=== PATIENT | male | born 1950 | race Caucasian/White ===

== ENCOUNTER 2016-07-08 12:10 | Emergency (ER) | payer OTHER ==
[~2016-07-08] VITALS: Ht 180.3 cm; Wt 63.5 kg
[2016-07-08 14:01] LABS: Basophils # (auto) 0 uL; Basophils % (auto) 0.5 % (0.0-2.0); Eosinophils # (auto) 0.1 uL; Eosinophils % (auto) 0.7 % (0.0-7.0); Hematocrit 49.4 % (41.0-53.0); Hemoglobin 15.7 g/dL (13.5-17.5); Lymphocytes # (auto) 1.9 uL; Lymphocytes % (auto) 20.4 % (10.0-50.0); Mean Corpuscular Hemoglobin 30.2 pg (28.0-32.0); Mean Corpuscular Hgb Conc. 31.8 g/dL (32.0-36.0); Mean Platelet Volume 8.2 fL (7.4-10.4); Monocytes # (auto) 0.6 uL; Monocytes % (auto) 6.1 % (0.0-12.0); Neutrophils # (auto) 6.9 uL; Neutrophils % (auto) 72.3 % (37.0-80.0); Platelet Count (auto) 249 10^3/uL (140-450); Red Cell Distribution Width 13.8 % (11.6-16.0); White Blood Cell 9.5 10^3/uL (4.4-10.8)
[2016-07-08 14:30] LABS: Albumin 4.3 g/dL (3.4-5.0); BUN/Creatinine Ratio 20.6; Bilirubin, Total 0.8 mg/dL (0.2-1.0); Calcium 9.3 mg/dL (8.5-10.1); Total Protein 7.5 g/dL (6.4-8.2)
[2016-07-08 18:44] LABS: B-Type Natriuretic Peptide 19.09 pg/mL (0-100)
[2016-07-08 19:23] LABS: Temperature: 22.1 C (20.0-25.0)
[2016-07-08 19:44] VITALS: BP 126/83
== END 2016-07-08 20:56 | disposition left against medical advice (07) ==
LOC: ER 12:11
DX: J44.9 Chronic obstructive pulmonary disease, unspecified (principal); R55 Syncope and collapse; F17.210 Nicotine dependence, cigarettes, uncomplicated; F12.10 Cannabis abuse, uncomplicated; R06.02 Shortness of breath
CPT/HCPCS: 36415; 70450; 71020; 80053; 83690; 83880; 84484; 85025; 85379; 93005

== ENCOUNTER 2020-07-09 14:04 | Emergency (ER) | payer OTHER ==
[~2020-07-09] VITALS: Ht 185.4 cm; Wt 63.5 kg
[2020-07-09 15:21] VITALS: BP 126/76
== END 2020-07-09 16:03 | disposition home or self-care (01) ==
LOC: ER 14:04
DX: M79.672 Pain in left foot (principal); F17.210 Nicotine dependence, cigarettes, uncomplicated; J44.9 Chronic obstructive pulmonary disease, unspecified
CPT/HCPCS: 73630

== ENCOUNTER 2022-06-10 10:48 | Emergency (ER) | payer MEDICARE, OTHER ==
[~2022-06-10] VITALS: Ht 185.4 cm; Wt 70.3 kg
[2022-06-10 11:57] LABS: Basophils # (auto) 0.1 10 ^3/uL (0-0.2); Basophils % (auto) 0.7 % (0.0-2.0); Eosinophils # (auto) 0.1 10 ^3/uL (0-0.8); Eosinophils % (auto) 1.5 % (0.0-7.0); Hematocrit 50.6 % (41.0-53.0); Hemoglobin 16.9 g/dL (13.5-17.5); Lymphocytes # (auto) 2.5 10 ^3/uL (0.4-5.4); Lymphocytes % (auto) 31.3 % (10.0-50.0); Mean Corpuscular Hemoglobin 31.5 pg (28.0-32.0); Mean Corpuscular Hgb Conc. 33.5 g/dL (32.0-36.0); Mean Corpuscular Volume 94.2 fL (80.0-100.0); Monocytes # (auto) 0.8 10 ^3/uL (0-1.3); Monocytes % (auto) 9.8 % (0.0-12.0); Neutrophils # (auto) 4.5 10 ^3/uL (1.6-8.6); Neutrophils % (auto) 56.7 % (37.0-80.0); Nucleated Red Blood Cells % 0.1 %; Red Blood Cells 5.37 10^6/uL (4.5-5.90); Red Cell Distribution Width 13.3 % (11.8-14.3); White Blood Cell 7.9 10^3/uL (4.4-10.8)
[2022-06-10 12:15] LABS: Albumin 4.6 g/dL (3.4-5.0); Calcium 9.4 mg/dL (8.5-10.1); Potassium 3.8 mmol/L (3.5-5.1)
[2022-06-10 12:18] LABS: Bilirubin, Total 0.7 mg/dL (0.2-1.0); Total Protein 7.2 g/dL (6.4-8.2)
[2022-06-10 12:41] LABS: Urine Bacteria NONE SEEN /hpf (None Seen); Urine Blood Negative /uL (Negative); Urine Specific Gravity 1.014 (1.001-1.035); Urine WBC <1 /hpf (0 - 3)
[2022-06-10 15:24] VITALS: BP 124/93
== END 2022-06-10 15:25 | disposition home or self-care (01) ==
LOC: ER 10:48
DX: R10.9 Unspecified abdominal pain (principal); R07.89 Other chest pain; J44.9 Chronic obstructive pulmonary disease, unspecified
CPT/HCPCS: 36415; 71046; 74176; 80053; 81001; 85025

== ENCOUNTER 2022-06-24 11:55 | Emergency (ER) | payer MEDICARE, OTHER ==
[~2022-06-24] VITALS: Ht 185.4 cm; Wt 70.3 kg
[2022-06-24] MEDS ORDERED: LIDOCAINE VISCOUS 2% 15ML UD PO ONE (12:45)
[2022-06-24] MEDS ORDERED: MAALOX PLUS or MAALOX 30 ML PO ONE (12:45)
[2022-06-24] MEDS ORDERED: SODIUM CHLORIDE 0.9% 1,000 ML IV ONE (12:45)
[2022-06-24] MEDS ORDERED: DONNATAL 5ml ORAL Elix (BELLADONNA ALK-PHENOBARB) PO ONE (12:45)
[2022-06-24] MEDS ORDERED: ASPirin 325 MG TAB PO ONE (12:45)
[2022-06-24 13:14] LABS: BUN/Creatinine Ratio 20.2; Basophils # (auto) 0 10 ^3/uL (0-0.2); Basophils % (auto) 0.6 % (0.0-2.0); Calcium 9.6 mg/dL (8.5-10.1); Eosinophils # (auto) 0.1 10 ^3/uL (0-0.8); Eosinophils % (auto) 1.6 % (0.0-7.0); Hematocrit 47.2 % (41.0-53.0); Lymphocytes # (auto) 1.9 10 ^3/uL (0.4-5.4); Lymphocytes % (auto) 29.6 % (10.0-50.0); Mean Corpuscular Hemoglobin 31.9 pg (28.0-32.0); Mean Corpuscular Hgb Conc. 33.8 g/dL (32.0-36.0); Mean Corpuscular Volume 94.3 fL (80.0-100.0); Monocytes # (auto) 0.6 10 ^3/uL (0-1.3); Monocytes % (auto) 8.6 % (0.0-12.0); Neutrophils # (auto) 3.9 10 ^3/uL (1.6-8.6); Neutrophils % (auto) 59.6 % (37.0-80.0); Nucleated Red Blood Cells % 0.2 %; Potassium 4.4 mmol/L (3.5-5.1); Red Cell Distribution Width 13.4 % (11.8-14.3); White Blood Cell 6.5 10^3/uL (4.4-10.8)
[2022-06-24 13:15] LABS: Bilirubin, Total 0.4 mg/dL (0.2-1.0); Total Protein 6.7 g/dL (6.4-8.2)
[2022-06-24 14:34] LABS: Urine WBC None Seen /hpf (0 - 3)
[2022-06-24 14:47] LABS: Urine Bacteria FEW /hpf (None Seen); Urine Blood Negative /uL (Negative); Urine Specific Gravity 1.011 (1.001-1.035)
[2022-06-24] MEDS ORDERED: PANT40TA2 PO (16:05)
[2022-06-24 17:08] VITALS: BP 117/72
== END 2022-06-24 17:11 | disposition home or self-care (01) ==
LOC: ER 11:55
DX: R07.89 Other chest pain (principal); K29.70 Gastritis, unspecified, without bleeding
CPT/HCPCS: 36415; 71045; 80053; 81001; 84484; 85025; 93005; 96360; 99285; J7030

== ENCOUNTER 2023-03-03 11:02 | Inpatient (IN) | payer MEDICARE, OTHER ==
[~2023-03-03] VITALS: Ht 185.4 cm; Wt 67.0 kg
[~2023-03-03 11:02] MED LIST: PANT40TA2 PO
[2023-03-03 11:43] LABS: Basophils # (auto) 0.1 10 ^3/uL (0-0.2); Basophils % (auto) 0.9 % (0.0-2.0); Eosinophils # (auto) 0.1 10 ^3/uL (0-0.8); Eosinophils % (auto) 1.4 % (0.0-7.0); Hematocrit 47.3 % (41.0-53.0); Hemoglobin 16.1 g/dL (13.5-17.5); Lymphocytes # (auto) 2.3 10 ^3/uL (0.4-5.4); Lymphocytes % (auto) 33.8 % (10.0-50.0); Mean Corpuscular Hemoglobin 31.6 pg (28.0-32.0); Mean Corpuscular Volume 92.7 fL (80.0-100.0); Monocytes # (auto) 0.8 10 ^3/uL (0-1.3); Neutrophils # (auto) 3.6 10 ^3/uL (1.6-8.6); Neutrophils % (auto) 52.9 % (37.0-80.0); Nucleated Red Blood Cells % 0.2 %; Red Cell Distribution Width 13.5 % (11.8-14.3); White Blood Cell 6.9 10^3/uL (4.4-10.8)
[2023-03-03 12:02] LABS: Alanine Aminotransferase 23 U/L (7-40); Albumin 4.6 g/dL (3.2-4.8); Alkaline Phosphatase 76 U/L (46-116); Anion Gap 3 (5-15); Aspartate Aminotransferase 15 U/L (13-40); BUN/Creatinine Ratio 10.8 (10.0-20.0); Bilirubin, Total 1.1 mg/dL (0.2-1.0); Blood Urea Nitrogen 12 mg/dL (9-23); Calcium 9.7 mg/dL (8.7-10.4); Carbon Dioxide 31 mmol/L (20-30); Chloride 105 mmol/L (98-107); Glucose 90 mg/dL (74-106); INR 1.03 (0.9-1.15); Partial Thromboplastin Time 27.9 SEC (24.5-34.5); Potassium 4.2 mmol/L (3.5-5.1); Prothrombin Time 10.8 sec (9.3-11.8); Sodium 139 mmol/L (136-145)
[2023-03-03 13:09] LABS: Urine Bacteria NONE SEEN /hpf (None Seen); Urine Blood Negative /uL (Negative); Urine Clarity Clear (Clear); Urine Color Yellow (Yellow); Urine Protein, UAD Negative (Negative); Urine Urobilinogen Normal (Negative); Urine WBC 1 /hpf (0 - 3); Urine pH 5.5 (5.0-8.0)
[2023-03-03 16:17] VITALS: PULSE 51; RESP 13; O2SAT 99
[2023-03-03] MEDS ORDERED: MORPHINE SULFATE INJ 2 MG/ml SYRG IV PRN ×2 (16:30)
[2023-03-03] MEDS ORDERED: ONDANSETRON HCL 4 MG/2 ML VIAL IV PRN (16:30)
[2023-03-03] MEDS ORDERED: NITROGLYCERIN 0.4 MG SL TAB SL PRN (16:30)
[2023-03-03] MEDS ORDERED: HYDROcodone-ACET 5/325MG TAB PO PRN (16:30)
[2023-03-03 19:30] VITALS: PULSE 55; RESP 15; O2SAT 97
[2023-03-04] VITALS (8 sets, daily range): BP systolic 106–131; BP diastolic 62–77; PULSE 48–63; RESP 17–20; TEMP 97.6–98.2; O2SAT 96–98
[2023-03-04] MEDS ORDERED: ADENOSINE 56 MG in GIVE UN-DILUTED 0 ML IV STA (07:40)
[2023-03-04] MEDS ORDERED: ENOXAPARIN SOD 40 MG/0.4 ML SYRINGE SC SCH (10:00)
[2023-03-04] MEDS ORDERED: ASPirin 81 mg TAB PO SCH (10:00)
== END 2023-03-04 16:55 | disposition home or self-care (01) | DRG 206 ==
LOC: ER 11:02 → TELE 16:27 → TELE-CENTR 21:55
PROVIDERS: ADMIT Internal Medicine; ATTEND Internal Medicine
DX: M94.0 Chondrocostal junction syndrome [Tietze] (principal); J44.9 Chronic obstructive pulmonary disease, unspecified; E78.5 Hyperlipidemia, unspecified
CPT/HCPCS: 36415; 71045; 78452; 80053; 81001; 84484; 85025; 85610; 85730; 93005; 93017; G0378; J0153

== ENCOUNTER 2024-07-14 11:07 | Emergency (ER) | payer OTHER, MEDICAID ==
[~2024-07-14] VITALS: Ht 185.4 cm; Wt 66.2 kg
--- NOTE | 2024-07-14 11:52 | ED.PDOC ---
History of Present Illness HPI Comments 74-year-old male with PMHx COPD presents with a chief complaint of nose bleeding x 6 days intermittently. Patient reports that this has happened to him before in the past "when I was giving my old lady head, she sat on my nose and it started bleeding and it hasn't been the same since". Patient denies being on blood thinners or taking any medications daily. Patient denies any injuries to his nose recently. Patient is not hypertensive in triage at 120/68. No other symptoms or modifying factors present at this time. Time Seen by MD: 11:44 Primary Care Provider: [facility] Reviewed Notes: Medications, Allergies Allergies: Coded Allergies: NO KNOWN ALLERGIES (Unverified , 07/08/16) Home Meds Unable to Obtain Active Prescriptions or Reported Meds Information Source: Patient Mode of Arrival: Ambulatory Severity: Moderate Timing: Days Duration: Intermittent Prehospital treatment: None Past Medical History PAST MEDICAL HISTORY: COPD Surgical History: Denies all surgeries Family History Family History: No family hx of DM, No family hx of Heart william Social History Smoker: Non-Smoker Alcohol: Rarely Drugs: Marijuana Lives In: Home Constitutional: denies: chills, diaphoresis, fatigue, fever, malaise, sweats, weakness, others EENTM: reports: nose bleeding; denies: blurred vision, double vision, ear bleeding, ear discharge, ear drainage, ear pain, ear ringing, eye pain, eye redness, hearing loss, mouth pain, mouth swelling, nasal discharge, nose congestion, nose pain, photophobia, tearing, throat pain, throat swelling, voice changes, others Respiratory: denies: cough, hemoptysis, orthopnea, SOB at rest, shortness of breath, SOB with excertion, stridor, wheezing, others Cardiovascular: denies: chest pain, dizzy spells, diaphoresis, Dyspnea on exertion, edema, irregular heart beat, left arm pain, lightheadedness, palpitations, PND, syncope, others Gastrointestinal: denies: abdomen distended, abdominal pain, blood streaked bowels, constipated, diarrhea, dysphagia, difficulty swallowing, hematemesis, melena, nausea, poor appetite, poor fluid intake, rectal bleeding, rectal pain, vomiting, others Genitourinary: denies: burning, dysuria, flank pain, frequency, hematuria, incontinence, penile discharge, penile sore, pain, testicle pain, testicle swelling, urgency, others Neurological: denies: dizziness, fainting, headache, left sided numbness, left sided weakness, numbness, paresthesia, pre-existing deficit, right sided numbness, right sided weakness, seizure, speech problems, tingling, tremors, weakness, others Musculoskeletal: denies: back pain, gout, joint pain, joint swelling, muscle pain, muscle stiffness, neck pain, others Integumetry: denies: bruises, change in color, change in hair/nails, dryness, laceration, lesions, lumps, rash, wounds, others Allergic/Immunocompromised: denies: Difficulty Healing, Frequent Infections, Hives, Itching, others Hematologic/Lymphatic: denies: anemia, blood clots, easy bleeding, easy bruising, swollen glands, others Endocrine: denies: excessive hunger, excessive sweating, excessive thirst, excessive urination, flushing, intolerance to cold, intolerance to heat, unexplained weight gain, unexplained weight loss, others Psychiatric: denies: anxiety, bipolar disorder, depression, hopeless, panic disorder, schizophrenia, sleepless, suicidal, others All Other Systems: Reviewed and Negative Physical Exam General Appearance: No Apparent Distress HEENT: Normal ENT Inspection, Pharynx Normal, TMs Normal Neck: Full Range of Motion, Non-Tender, Normal, Normal Inspection Respiratory: Chest Non-Tender, Lungs Clear, No Accessory Muscle Use, No Respiratory Distress, Normal Breath Sounds Cardiovascular: No Edema, No JVD, No Murmur, No Gallop, Normal Peripheral Pulses, Regular Rate/Rhythm Breast Exam: Deferred Gastrointestinal: No Organomegaly, Non Tender, No Pulsatile Mass, Normal Bowel Sounds, Soft Genitalia: Deferred Pelvic: Deferred Rectal: Deferred Extremities: No calf tenderness, Normal capillary refill, Normal inspection, Normal range of motion, Non-tender, No pedal edema Musculoskeletal : Apperance: Normal Neurologic: Alert, 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 Was a procedure done?: No Differential Dx Considerations may include: Epistaxis, generalized weakness X-Ray, Labs, Meds, VS Vital Signs Date Time Temp Pulse Resp B/P (MAP) Pulse Ox O2 Delivery O2 Flow Rate FiO2 07/14/24 12:09 54 16 97 Room Air 07/14/24 12:09 97.1 54 16 120/68 (85) 97 97.1 07/14/24 11:56 97.1 54 16 120/68 (85) 97 Lab Test 07/14/24 13:00 Range/Units White Blood Count 5.9 4.4-10.8 10^3/uL Red Blood Count 4.82 4.5-5.90 10^6/uL Hemoglobin 15.3 13.5-17.5 g/dL Hematocrit 45.2 41.0-53.0 % Mean Corpuscular Volume 93.6 80.0-100.0 fL Mean Corpuscular Hemoglobin 31.6 28.0-32.0 pg Mean Corpuscular Hemoglobin Concent 33.8 32.0-36.0 g/dL Red Cell Distribution Width 13.6 11.8-14.3 % Platelet Count 194 140-450 10^3/uL Mean Platelet Volume 8.2 6.9-10.8 fL Neutrophils (%) (Auto) 53.3 37.0-80.0 % Lymphocytes (%) (Auto) 33.1 10.0-50.0 % Monocytes (%) (Auto) 10.5 0.0-12.0 % Eosinophils (%) (Auto) 2.2 0.0-7.0 % Basophils (%) (Auto) 0.9 0.0-2.0 % Neutrophils # (Auto) 3.1 1.6-8.6 10 ^3/uL Lymphocytes # (Auto) 1.9 0.4-5.4 10 ^3/uL Monocytes # (Auto) 0.6 0-1.3 10 ^3/uL Eosinophils # (Auto) 0.1 0-0.8 10 ^3/uL Basophils # (Auto) 0.1 0-0.2 10 ^3/uL Nucleated Red Blood Cells 0.1 % Prothrombin Time 10.2 9.3-11.8 sec Prothrombin Time INR 0.96 0.9-1.15 Activated Partial Thromboplast Time 28.6 24.5-34.5 SEC CBC is within normal limits The chemistry panel is within normal limits The INR is within normal limits The patient was not bleeding at this time The patient was being discharged and will follow up with the primary care doctor The patient will return to the emergency department's the condition worsens. Time of 1ST Reevaluation: 12:14 Reevaluation 1ST: Unchanged Patient Education/Counseling: Diagnosis, Treatment, Prognosis, Need For Follow Up Family Education/Counseling: Diagnosis, Treatment, Prognosis, Need For Follow Up Departure 1 Departure Time of Disposition: 14:40 Impression: Primary Impression: Epistaxis Disposition: 01 HOME / SELF CARE / HOMELESS Condition: Fair e-Prescriptions Unable to Obtain Active Prescriptions or Reported Meds Discharged With: Self Critical Care Note Critical Care Time?: No Stability Stability form required: No Heart Score Heart Score: Heart Score Response (Comments) Value History N/A 0 EKG N/A 0 Age N/A 0 Risk Factors N/A 0 Troponin N/A 0 Total 0 I personally scribed for HU MACIAS MD ([email or web address]) on 07/14/24 at 11:52. Electronically submitted by Alfred Marie ([email or web address]). HU MACIAS MD Jul 14, 2024 11:52
[2024-07-14 12:09] VITALS: BP 120/68; PULSE 54; RESP 16; TEMP 97.1; O2SAT 97
[2024-07-14 13:38] LABS: Basophils # (auto) 0.1 10 ^3/uL (0-0.2); Basophils % (auto) 0.9 % (0.0-2.0); Eosinophils # (auto) 0.1 10 ^3/uL (0-0.8); Eosinophils % (auto) 2.2 % (0.0-7.0); Hematocrit 45.2 % (41.0-53.0); Hemoglobin 15.3 g/dL (13.5-17.5); Lymphocytes # (auto) 1.9 10 ^3/uL (0.4-5.4); Lymphocytes % (auto) 33.1 % (10.0-50.0); Mean Corpuscular Hemoglobin 31.6 pg (28.0-32.0); Mean Corpuscular Hgb Conc. 33.8 g/dL (32.0-36.0); Mean Corpuscular Volume 93.6 fL (80.0-100.0); Monocytes # (auto) 0.6 10 ^3/uL (0-1.3); Monocytes % (auto) 10.5 % (0.0-12.0); Neutrophils # (auto) 3.1 10 ^3/uL (1.6-8.6); Neutrophils % (auto) 53.3 % (37.0-80.0); Nucleated Red Blood Cells % 0.1 %; Platelet Count (auto) 194 10^3/uL (140-450); Red Blood Cells 4.82 10^6/uL (4.5-5.90); Red Cell Distribution Width 13.6 % (11.8-14.3); White Blood Cell 5.9 10^3/uL (4.4-10.8)
[2024-07-14 14:21] LABS: INR 0.96 (0.9-1.15); Partial Thromboplastin Time 28.6 SEC (24.5-34.5); Prothrombin Time 10.2 sec (9.3-11.8)
== END 2024-07-14 15:04 | disposition home or self-care (01) ==
LOC: ER 11:07
DX: R04.0 Epistaxis (principal); J44.9 Chronic obstructive pulmonary disease, unspecified
CPT/HCPCS: 36415; 85025; 85610; 85730

== ENCOUNTER 2025-02-04 08:59 | Inpatient (IN) | payer OTHER ==
[~2025-02-04] VITALS: Ht 185.4 cm; Wt 66.4 kg
--- NOTE | 2025-02-04 09:08 | ECG ---
[facility] Test Date: 2025-02-04 Test Time: 09:07:11 Pat Name: JORDI KAUR Department: ED Room: 0218 Gender: M Supervisor Pipelines: SERVANDO : 1950 Requested By: RABIA KAPADIA Order Number: [id number] Reading MD: Vic Kovacs Measurements Intervals [place] Rate: 60 P: -22 MT: 155 QRS: 118 QRSD: 137 T: -31 QT: 452 QTc: 452 Interpretive Statements Sinus rhythm IVCD, consider atypical RBBB Electronically Signed On 02-05-2025 16:43:18 PDT by Vic Kovacs Please click the below link to view image of tracing.
--- NOTE | 2025-02-04 09:13 | ED.PDOC ---
SOB-HPI HPI Comments This is a 74 year old male presenting to the ED with chief complaint of SOB. Patient reports that he has been experiencing worsening SOB with associated cough and chest tightness for the past week. Patient relays that his SOB is worse with exertion. Patient states that he was advised to come to the ED [facility] due to his worsening symptoms. Patient notes he has history of COPD and CAD. Patient denies any fever, chills, dizziness, headache, syncope, or wheezing. Chief Complaint: Shortness of Breath Time Seen by MD: 09:02 Primary Care Provider: [place] Reviewed notes: Nurses Notes, Medications, Allergies Information Source: Patient Mode of Arrival: Ambulatory Severity: Moderate Timing: Weeks Duration: Since onset Context: At Rest PE Risk Factors: None History of: COPD Prehospital treatment: None Modifying Factors: Nothing Associated Signs and Symptoms: Cough If cough with SOB: Non-Productive Past Medical History PAST MEDICAL HISTORY: CAD, COPD, High Lipids Surgical History: Denies all surgeries Family History Family History: No family hx of DM, No family hx of Heart william Social History Smoker: Non-Smoker Alcohol: Rarely Drugs: Marijuana Lives In: Home Constitutional: denies: chills, diaphoresis, fatigue, fever, malaise, sweats, weakness, others EENTM: denies: blurred vision, double vision, ear bleeding, ear discharge, ear drainage, ear pain, ear ringing, eye pain, eye redness, hearing loss, mouth pain, mouth swelling, nasal discharge, nose bleeding, nose congestion, nose pain, photophobia, tearing, throat pain, throat swelling, voice changes, others Respiratory: reports: cough, shortness of breath, SOB with excertion; denies: hemoptysis, orthopnea, SOB at rest, stridor, wheezing, others Cardiovascular: reports: chest pain; denies: dizzy spells, diaphoresis, Dyspnea on exertion, edema, irregular heart beat, left arm pain, lightheadedness, palpitations, PND, syncope, others Gastrointestinal: denies: abdomen distended, abdominal pain, blood streaked bowels, constipated, diarrhea, dysphagia, difficulty swallowing, hematemesis, melena, nausea, poor appetite, poor fluid intake, rectal bleeding, rectal pain, vomiting, others Genitourinary: denies: burning, dysuria, flank pain, frequency, hematuria, incontinence, penile discharge, penile sore, pain, testicle pain, testicle swelling, urgency, others Neurological: denies: dizziness, fainting, headache, left sided numbness, left sided weakness, numbness, paresthesia, pre-existing deficit, right sided numbness, right sided weakness, seizure, speech problems, tingling, tremors, weakness, others Musculoskeletal: denies: back pain, gout, joint pain, joint swelling, muscle pain, muscle stiffness, neck pain, others Integumetry: denies: bruises, change in color, change in hair/nails, dryness, laceration, lesions, lumps, rash, wounds, others Allergic/Immunocompromised: denies: Difficulty Healing, Frequent Infections, Hives, Itching, others Hematologic/Lymphatic: denies: anemia, blood clots, easy bleeding, easy bruising, swollen glands, others Endocrine: denies: excessive hunger, excessive sweating, excessive thirst, excessive urination, flushing, intolerance to cold, intolerance to heat, unexplained weight gain, unexplained weight loss, others Psychiatric: denies: anxiety, bipolar disorder, depression, hopeless, panic disorder, schizophrenia, sleepless, suicidal, others All Other Systems: Reviewed and Negative Physical Exam General Appearance: Moderate Distress, Thin HEENT: Normal ENT Inspection, Pharynx Normal, TMs Normal Neck: Full Range of Motion, Non-Tender, Normal, Normal Inspection Respiratory: Chest Non-Tender, Lungs Clear, No Accessory Muscle Use, No Respiratory Distress, Normal Breath Sounds Cardiovascular: No Edema, No JVD, No Murmur, No Gallop, Normal Peripheral Pulses, Regular Rate/Rhythm Breast Exam: Deferred Gastrointestinal: No Organomegaly, Non Tender, No Pulsatile Mass, Normal Bowel Sounds, Soft Genitalia: Deferred Pelvic: Deferred Rectal: Deferred Extremities: No calf tenderness, Normal capillary refill, Normal inspection, Normal range of motion, Non-tender, No pedal edema Musculoskeletal : Apperance: Normal Neurologic: Alert, manager performance improvement II-XII nml as Tested, No Motor Deficits, Normal Affect, Normal Mood, No Sensory Deficits Cerebellar Function: Normal Reflexes: Normal Skin: Dry, Normal Color, Warm Peripheral Pulses: 3+ Radial (R), 3+ Radial (L) Lymphatic: No Adenopathy EKG EKG : Pulse Rate (adult): 60 [place]: Normal Cardiac Rhythm: NSR Block: None Hypertrophy: None ST: Normal Was a procedure done? Was a procedure done?: No Differential Dx Differential Diagnosis: Anxiety, Asthma, Bronchitis, CHF, COPD X-Ray, Labs, Meds, VS Vital Signs Date Time Temp Pulse Resp B/P (MAP) Pulse Ox O2 Delivery O2 Flow Rate FiO2 02/04/25 14:40 98.1 59 20 104/72 (83) 96 98.1 02/04/25 11:06 118/76 02/04/25 11:00 97.4 61 20 118/76 (90) 98 97.4 02/04/25 11:00 61 20 98 Room Air* 0 21 02/04/25 09:48 20 98 Room Air* 0 21 02/04/25 09:27 60 02/04/25 09:07 60 02/04/25 09:01 98.1 67 18 162/95 96 98.1 Lab Test 02/04/25 11:50 02/04/25 10:28 02/04/25 09:32 02/04/25 09:31 Range/Units Urine Color Colorless Yellow Urine Clarity Clear Clear Urine pH 5.0 5.0-9.0 Urine Specific [place] 1.005 1.001-1.035 Urine Protein Negative Negative Urine Ketones Negative Negative Urine Blood Negative Negative /uL Urine Nitrite Negative Negative Urine Bilirubin Negative Negative Urine Urobilinogen Normal Negative mg/dL Urine Leukocyte Esterase Negative Negative /uL Urine RBC <1 0 - 3 /hpf Urine Microscopic WBC < 1 0-3 /HPF Urine Squamous Epithelial Cells None seen <5 /hpf Urine Bacteria None seen None Seen /hpf Urine Hyaline Casts Few 0 - 2 /lpf Urine Glucose Normal Normal mg/dL Troponin I High Sensitivity 3 L 6 </=54 ng/L B-Type Natriuretic Peptide 31.67 0-100 pg/mL White Blood Count 6.6 4.4-10.8 10^3/uL Red Blood Count 5.32 4.5-5.90 10^6/uL Hemoglobin 17.2 13.5-17.5 g/dL Hematocrit 49.7 41.0-53.0 % Mean Corpuscular Volume 93.4 80.0-100.0 fL Mean Corpuscular Hemoglobin 32.3 H 28.0-32.0 pg Mean Corpuscular Hemoglobin Concent 34.6 32.0-36.0 g/dL Red Cell Distribution Width 13.7 11.8-14.3 % Platelet Count 198 140-450 10^3/uL Mean Platelet Volume 8.4 6.9-10.8 fL Neutrophils (%) (Auto) 58.8 37.0-80.0 % Lymphocytes (%) (Auto) 30.3 10.0-50.0 % Monocytes (%) (Auto) 9.0 0.0-12.0 % Eosinophils (%) (Auto) 1.4 0.0-7.0 % Basophils (%) (Auto) 0.5 0.0-2.0 % Neutrophils # (Auto) 3.9 1.6-8.6 10 ^3/uL Lymphocytes # (Auto) 2.0 0.4-5.4 10 ^3/uL Monocytes # (Auto) 0.6 0-1.3 10 ^3/uL Eosinophils # (Auto) 0.1 0-0.8 10 ^3/uL Basophils # (Auto) 0 0-0.2 10 ^3/uL Nucleated Red Blood Cells 0.1 % Sodium Level 140 136-145 mmol/L Potassium Level 3.6 3.5-5.1 mmol/L Chloride Level 105 98-107 mmol/L Carbon Dioxide Level 27 20-31 mmol/L Anion Gap 8 5-15 Blood Urea Nitrogen 11 9-23 mg/dL Creatinine 1.07 0.700-1.30 mg/dL Glomerular Filtration Rate Calc 73 >90 mL/min BUN/Creatinine Ratio 10.3 10.0-20.0 Serum Glucose 128 H 74-106 mg/dL Calcium Level 9.5 8.7-10.4 mg/dL Current Medications Medications (Trade) Dose Ordered Sig/Miriam Route Start Time Stop Time Status Last Admin Albuterol (Ventolin Medneb) 5 mg ONCE ONCE NEB 02/04/25 09:15 02/04/25 09:16 DC 02/04/25 09:48 Ipratropium [place] (Atrovent Medneb) 0.5 mg ONCE ONCE NEB 02/04/25 09:15 02/04/25 09:16 DC 02/04/25 09:48 Furosemide (Lasix Injection) 20 mg ONCE ONCE IV 02/04/25 09:15 02/04/25 09:16 DC 02/04/25 11:06 Aspirin 325 mg ONCE ONCE PO 02/04/25 09:15 02/04/25 09:16 DC 02/04/25 11:06 Patient alert. Complaining of shortness a breath chest pain. Vitals stable. Answering questions. Continues to smoke marijuana. Possible CHF. Was given Lasix. Possible COPD. Was given breathing treatment. He will need echocardiogram. Cardiology consultation. EKG reviewed does not show any acute changes. Explained to the patient. Continue monitoring.[place] [id number] Ph: [phone] DIAGNOSTIC IMAGING Diagnostic Imaging Report : [id number] Signed PATIENT: JORDI KAUR ACCT: [id number] UNIT: [id number] : 1950 LOC: ER ROOM / BED: / AGE / SEX: 74 / M ADM STATUS: REG ER SERVICE 0 ORDERING PHYSICIAN: RABIA KAPADIA MD PROCEDURE(s): CXRP - CHEST PORTABLE REASON: sob ORDER NUMBER(s): [id number], ACCESSION NUMBER(s): [id number] EXAM: XY CHEST PORTABLE Indication: sob Technique: Single frontal view of the chest was obtained Comparison: XY CHEST PORTABLE on DOS: 03/03/23, CXRP on DOS: 06/24/22, CHEST PORTABLE on DOS: 06/24/22, CXR2 on DOS: 06/10/22, CHEST TWO VIEWS ROUTINE on DOS: 06/10/22 FINDINGS: Lines and Tubes: None Lungs: No focal consolidation. Pleura: No effusion. No pneumothorax. Cardiomediastinal contours: Unremarkable. Atherosclerotic vascular calcificati ons of the thoracic aorta are noted. Bones: No acute osseous abnormality. IMPRESSION: No acute cardiopulmonary disease. ATED BY: LINA JOSEPH MD DICTATED DATE/TIME: 02/04/25947 SIGNED BY: LINA JOSEPH MD SIGNED DATE/TIME: 02/04/25947 CC: Images Reviewed?: Images reviewed and evaluated by me Time of 1ST Reevaluation: 10:02 Reevaluation 1ST: Unchanged Patient Education/Counseling: Diagnosis, Treatment Family Education/Counseling: No Family Present SEPSIS Sepsis Screen Physician Orders Chest Portable (02/04/25 09:11) Vital Signs Date Time Temp Pulse Resp B/P (MAP) Pulse Ox O2 Delivery O2 Flow Rate FiO2 02/04/25 14:40 98.1 59 20 104/72 (83) 96 98.1 02/04/25 11:06 118/76 02/04/25 11:00 97.4 61 20 118/76 (90) 98 97.4 02/04/25 11:00 61 20 98 Room Air* 0 21 02/04/25 09:48 20 98 Room Air* 0 21 02/04/25 09:27 60 02/04/25 09:07 60 02/04/25 09:01 98.1 67 18 162/95 96 98.1 Laboratory Tests Test 02/04/25 09:31 White Blood Count 6.6 10^3/uL (4.4-10.8) Medications Medications Dose Ordered Sig/Miriam Route Start Time Stop Time Status Last Admin Dose Admin Albuterol 5 mg ONCE ONCE NEB 02/04/25 09:15 02/04/25 09:16 DC 02/04/25 09:48 Aspirin 325 mg ONCE ONCE PO 02/04/25 09:15 02/04/25 09:16 DC 02/04/25 11:06 Furosemide 20 mg ONCE ONCE IV 02/04/25 09:15 02/04/25 09:16 DC 02/04/25 11:06 Ipratropium [place] 0.5 mg ONCE ONCE NEB 02/04/25 09:15 02/04/25 09:16 DC 02/04/25 09:48 Departure 1 Departure Time of Disposition: 09:16 Impression: Primary Impression: Chest pain of unknown etiology Additional Impression: COPD (chronic obstructive pulmonary disease) Qualified Codes: J44.9 - Chronic obstructive pulmonary disease, unspecified Disposition: 09 ADMITTED INPATIENT Admit to: Med Surg Condition: Guarded e-Prescriptions Unable to Obtain Active Prescriptions or Reported Meds Critical Care Note Critical Care Time?: No Stability Stability form required: No Heart Score Heart Score: Heart Score Response (Comments) Value History Slightly Suspicious 0 EKG Normal 0 Age >65 2 Risk Factors 1 or 2 risk factors 1 Troponin Normal limit 0 Total 3 I personally scribed for RABIA AKPADIA MD ([email or web address]) on 02/04/25 at 09:13. Electronically submitted by Tito Garland ([email or web address]). I personally scribed for RABIA KAPADIA MD ([email or web address]) on 02/04/25 at 09:27. Electronically submitted by Tito Garland ([email or web address]). I personally scribed for RABIA KAPADIA MD ([email or web address]) on 02/04/25 at 10:19. Electronically submitted by Tito Garland ([email or web address]). RABIA KAPADIA MD Feb 04, 2025 09:13
[2025-02-04] MEDS: ALBUTEROL SULF 2.5 MG/0.5ML(0.5%) NEB SOLN NEB ONE (09:48)
[2025-02-04] MEDS: IPRATROPIUM BROM 0.5 MG/2.5ML INH SOL NEB ONE (09:48)
--- NOTE | 2025-02-04 09:51 | DVH ---
EXAM: XY CHEST PORTABLE Indication: sob Technique: Single frontal view of the chest was obtained Comparison: XY CHEST PORTABLE on DOS: 03/03/23, CXRP on DOS: 06/24/22, CHEST PORTABLE on DOS: 06/24/22, CXR2 on DOS: 06/10/22, CHEST TWO VIEWS ROUTINE on DOS: 06/10/22 FINDINGS: Lines and Tubes: None Lungs: No focal consolidation. Pleura: No effusion. No pneumothorax. Cardiomediastinal contours: Unremarkable. Atherosclerotic vascular calcifications of the thoracic ao rta are noted. Bones: No acute osseous abnormality. IMPRESSION: No acute cardiopulmonary disease.
[2025-02-04 10:25] LABS: Hematocrit 49.7 % (41.0-53.0); Hemoglobin 17.2 g/dL (13.5-17.5); Mean Corpuscular Hemoglobin 32.3 pg (28.0-32.0); Mean Corpuscular Volume 93.4 fL (80.0-100.0); Nucleated Red Blood Cells % 0.1 %
[2025-02-04 10:30] LABS: Chloride 105 mmol/L (98-107); Potassium 3.6 mmol/L (3.5-5.1); Sodium 140 mmol/L (136-145)
[2025-02-04 10:32] LABS: Calcium 9.5 mg/dL (8.7-10.4); Carbon Dioxide 27 mmol/L (20-31)
[2025-02-04 10:37] LABS: BUN/Creatinine Ratio 10.3 (10.0-20.0); Blood Urea Nitrogen 11 mg/dL (9-23)
[2025-02-04 10:40] LABS: Glucose 128 mg/dL (74-106)
[2025-02-04 10:42] LABS: Anion Gap 8 (5-15)
[2025-02-04 11:00] VITALS: PULSE 61; RESP 20; O2SAT 98
[2025-02-04] MEDS: FUROSEMIDE 20 MG/2 ML VIAL IV ONE (11:06)
[2025-02-04 12:33] LABS: Urine Protein, UAD Negative (Negative)
[2025-02-04] MEDS ORDERED: DOCUSATE SOD 100 MG CAP PO PRN (18:15)
[2025-02-04] MEDS ORDERED: HYDROcodone-ACET 5/325MG TAB PO PRN (18:15)
[2025-02-04] MEDS ORDERED: HYDROmorphone HCL 2 MG/ML VL/or syr IV PRN (18:15)
--- NOTE | 2025-02-04 18:31 | DVHHP2 ---
Admitting Diagnosis: Shortness of breaths History of Present Illness This is a 74 year old male presenting to the ED with chief complaint of SOB. Patient reports that he has been experiencing worsening SOB with associated cough and chest tightness for the past week. Patient relays that his SOB is worse with exertion. Patient states that he was advised to come to the ED by [facility] due to his worsening symptoms. Patient notes he has history of COPD and CAD. Patient denies any fever, chills, dizziness, headache, syncope, or wheezing. PAST MEDICAL HISTORY: CAD, COPD, High Lipids Surgical History: Denies all surgeries Family History Family History: No family hx of DM, No family hx of Heart william Social History Smoker: Non-Smoker Alcohol: Rarely Drugs: Marijuana Lives In: Home Patient Family History: Patient reports no known family medical history. Allergies: Coded Allergies: NO KNOWN ALLERGIES (Unverified , 07/08/16) Home Meds Unable to Obtain Active Prescriptions or Reported Meds Current Medications Current Medications Medications (Trade) Dose Ordered Sig/Miriam Route PRN Reason Start Time Stop Time Status Last Admin Sodium Chloride (Saline Lock Ns) 10 ml Q8HR IV 02/04/25 22:00 Docusate Sodium (Colace Capsule) 100 mg BIDPRN PRN PO FOR CONSTIPATION 02/04/25 18:15 Acetaminophen (Tylenol Tablet) 650 mg Q6HP PRN PO PAIN SCALE 1-3 OR TEMP>100.4 02/04/25 18:15 Acetaminophen/ Hydrocodone Bitart ([place] 5/325MG Tab) 1 tab Q4HP PRN PO MODERATE PAIN (4-6 PAIN SCALE) 02/04/25 18:15 Hydromorphone HCl (Dilaudid Injection) 0.5 mg Q4HP PRN IV SEVERE PAIN (7-10 PAIN SCALE) 02/04/25 18:15 Enoxaparin Sodium (Lovenox) 40 mg DAILY SC 02/05/25 10:00 Vital Signs Vital Signs Date Time Temp Pulse Resp B/P (MAP) Pulse Ox O2 Delivery O2 Flow Rate FiO2 02/04/25 17:43 97.7 60 20 122/73 (89) 96 97.7 02/04/25 11:00 Room Air* 0 21 Physical Exam Generally-74 years old male, well nourished well developed sitting on chair. No apparent distress HEENT-atraumatic normocephalic Heart-regular rate and rhythm Lungs decreased breath sounds bilaterally Abdomen nontender nondistended Musculoskeletal-no edema cyanosis Neuro-AO x3, no focal deficit SEPSIS Sepsis Screen Date sepsis recognized/suspect: Feb 04, 2025 Time Sepsis recognized/suspect: 902 Recent Procedure: No On Antibiotic Therapy: No Respiratory Rate >20: No Heart Rate >90: No Temp<36 C (96.8 F) or >38.3 C: No SBP <90 or MAP <65 mmHG: No New Acute Mental Status Change: No Is the patient on CPAP, BIPAP,: No Physician Orders Chest Portable (02/04/25 09:11) Admit (02/04/25 18:03) Code Status (02/04/25 18:03) Vital Signs .PER UNIT PROTOCOL (02/04/25 18:03) Review Orders With Adm.Md (02/04/25 18:03) Encourage Activity As Tolerate (02/04/25 18:03) Regular Diet (02/04/25 Dinner) Sodium Chloride Lock (Saline Lock Ns) (02/04/25 22:00) Docusate Sodium Capsule (Colace Capsule) (02/04/25 18:15) Acetaminophen Tablet (Tylenol Tablet) (02/04/25 18:15) Notify Md Of Changes From Base (02/04/25 18:03) Advance Directive (02/04/25 18:03) Patient Condition (02/04/25 18:03) Allergies (02/04/25 18:03) Hydrocodone-Acet 5/325mg Tab ([place] 5/32 (02/04/25 18:15) Hydromorphone Injection (Dilaudid Inject (02/04/25 18:15) Enoxaparin Sodium (Lovenox) (02/05/25 10:00) Albuterol Medneb (Ventolin Medneb) (02/05/25 06:00) Ipratropium Medneb (Atrovent Medneb) (02/05/25 06:00) Methylprednisolone Sod Succ (Solu Medrol (02/04/25 22:00) Comprehensive Metabolic Panel (02/05/25 05:00) Comprehensive Metabolic Panel (02/06/25 05:00) Comprehensive Metabolic Panel (02/07/25 05:00) Comprehensive Metabolic Panel (02/08/25 05:00) Comprehensive Metabolic Panel (02/09/25 05:00) Complete Blood Count (02/05/25 05:00) Complete Blood Count (02/06/25 05:00) Complete Blood Count (02/07/25 05:00) Complete Blood Count (02/08/25 05:00) Complete Blood Count (02/09/25 05:00) Vital Signs Date Time Temp Pulse Resp B/P (MAP) Pulse Ox O2 Delivery O2 Flow Rate FiO2 02/04/25 17:43 97.7 60 20 122/73 (89) 96 97.7 02/04/25 14:40 98.1 59 20 104/72 (83) 96 98.1 02/04/25 11:06 118/76 02/04/25 11:00 97.4 61 20 118/76 (90) 98 97.4 02/04/25 11:00 61 20 98 Room Air* 0 21 02/04/25 09:48 20 98 Room Air* 0 21 02/04/25 09:27 60 02/04/25 09:07 60 02/04/25 09:01 98.1 67 18 162/95 96 98.1 Laboratory Tests Test 02/04/25 09:31 White Blood Count 6.6 10^3/uL (4.4-10.8) Medications Medications Dose Ordered Sig/Miriam Route Start Time Stop Time Status Last Admin Dose Admin Albuterol 5 mg ONCE ONCE NEB 02/04/25 09:15 02/04/25 09:16 DC 02/04/25 09:48 Aspirin 325 mg ONCE ONCE PO 02/04/25 09:15 02/04/25 09:16 DC 02/04/25 11:06 Furosemide 20 mg ONCE ONCE IV 02/04/25 09:15 02/04/25 09:16 DC 02/04/25 11:06 Ipratropium [place] 0.5 mg ONCE ONCE NEB 02/04/25 09:15 02/04/25 09:16 DC 02/04/25 09:48 Results Labs Test 02/04/25 11:50 02/04/25 10:28 02/04/25 09:32 02/04/25 09:31 Range/Units Urine Color Colorless Yellow Urine Clarity Clear Clear Urine pH 5.0 5.0-9.0 Urine Specific [place] 1.005 1.001-1.035 Urine Protein Negative Negative Urine Ketones Negative Negative Urine Blood Negative Negative /uL Urine Nitrite Negative Negative Urine Bilirubin Negative Negative Urine Urobilinogen Normal Negative mg/dL Urine Leukocyte Esterase Negative Negative /uL Urine RBC <1 0 - 3 /hpf Urine Microscopic WBC < 1 0-3 /HPF Urine Squamous Epithelial Cells None seen <5 /hpf Urine Bacteria None seen None Seen /hpf Urine Hyaline Casts Few 0 - 2 /lpf Urine Glucose Normal Normal mg/dL Troponin I High Sensitivity 3 L </=54 ng/L B-Type Natriuretic Peptide 31.67 0-100 pg/mL White Blood Count 6.6 4.4-10.8 10^3/uL Red Blood Count 5.32 4.5-5.90 10^6/uL Hemoglobin 17.2 13.5-17.5 g/dL Hematocrit 49.7 41.0-53.0 % Mean Corpuscular Volume 93.4 80.0-100.0 fL Mean Corpuscular Hemoglobin 32.3 H 28.0-32.0 pg Mean Corpuscular Hemoglobin Concent 34.6 32.0-36.0 g/dL Red Cell Distribution Width 13.7 11.8-14.3 % Platelet Count 198 140-450 10^3/uL Mean Platelet Volume 8.4 6.9-10.8 fL Neutrophils (%) (Auto) 58.8 37.0-80.0 % Lymphocytes (%) (Auto) 30.3 10.0-50.0 % Monocytes (%) (Auto) 9.0 0.0-12.0 % Eosinophils (%) (Auto) 1.4 0.0-7.0 % Basophils (%) (Auto) 0.5 0.0-2.0 % Neutrophils # (Auto) 3.9 1.6-8.6 10 ^3/uL Lymphocytes # (Auto) 2.0 0.4-5.4 10 ^3/uL Monocytes # (Auto) 0.6 0-1.3 10 ^3/uL Eosinophils # (Auto) 0.1 0-0.8 10 ^3/uL Basophils # (Auto) 0 0-0.2 10 ^3/uL Nucleated Red Blood Cells 0.1 % Sodium Level 140 136-145 mmol/L Potassium Level 3.6 3.5-5.1 mmol/L Chloride Level 105 98-107 mmol/L Carbon Dioxide Level 27 20-31 mmol/L Anion Gap 8 5-15 Blood Urea Nitrogen 11 9-23 mg/dL Creatinine 1.07 0.700-1.30 mg/dL Glomerular Filtration Rate Calc 73 >90 mL/min BUN/Creatinine Ratio 10.3 10.0-20.0 Serum Glucose 128 H 74-106 mg/dL Calcium Level 9.5 8.7-10.4 mg/dL Primary Diagnosis Acute COPD exacerbation Plan Decreased breath sounds throughout the lungs, no crackles lower lung ibarra Troponin negative x2 patient did does not have any chest pain patient's chest discomfort after having shortness breath check echo Current smoker Solu-Medrol 60 q.8 hours Ipratropium and albuterol Q 6 hours while awake Oxygen saturation goal greater than 92% Pharmacy for home med reconciliation Full code Lovenox for DVT prophylaxis PPI for GI prophylaxis Plan discussed with: Patient Problems List: (1) COPD (chronic obstructive pulmonary disease) Status: Acute Date of Service: Feb 04, 2025 Billing Provider: MIKY BROWN MD Common Visit Codes: [id number] INP/OBS CARE (MOD) MIKY BROWN MD Feb 04, 2025 18:31
[2025-02-04 20:47] VITALS: BP 120/94; PULSE 60; RESP 20; TEMP 97.5; O2SAT 97
[2025-02-04] MEDS: methylPREDNISolone SOD SUCC 125 MG/2 ML VL IV SCH (22:00)
[2025-02-04] MEDS: SODIUM CHLOR 0.9% PF (SALINE LOCK) 10ML VIAL/SYR IV SCH (22:02)
[2025-02-04 23:13] VITALS: BP 130/76; PULSE 55; RESP 18; TEMP 97.5; O2SAT 96
[2025-02-04 23:19] VITALS: BP 130/76; PULSE 55; RESP 18; TEMP 97.5; O2SAT 96
[2025-02-05] VITALS (13 sets, daily range): BP systolic 81–132; BP diastolic 50–95; PULSE 53–88; RESP 16–20; TEMP 97.5–98.5; O2SAT 95–100
[2025-02-05] MEDS: IPRATROPIUM BROM 0.5 MG/2.5ML INH SOL NEB SCH (06:08)
[2025-02-05] MEDS: ALBUTEROL SULF 2.5 MG/0.5ML(0.5%) NEB SOLN NEB SCH (06:08)
[2025-02-05 07:05] LABS: Hematocrit 44.7 % (41.0-53.0); Hemoglobin 15.8 g/dL (13.5-17.5); Mean Corpuscular Hemoglobin 32.6 pg (28.0-32.0); Mean Corpuscular Volume 92.3 fL (80.0-100.0); Nucleated Red Blood Cells % 0.1 %
[2025-02-05 07:10] LABS: Alanine Aminotransferase 24 U/L (7-40); Alkaline Phosphatase 73 U/L (46-116); Anion Gap 6 (5-15); BUN/Creatinine Ratio 12.0 (10.0-20.0); Blood Urea Nitrogen 13 mg/dL (9-23); Calcium 9.3 mg/dL (8.7-10.4); Carbon Dioxide 28 mmol/L (20-31); Chloride 105 mmol/L (98-107); Glucose 85 mg/dL (74-106); Potassium 3.7 mmol/L (3.5-5.1); Sodium 139 mmol/L (136-145); Total Protein 6.3 g/dL (5.7-8.2)
[2025-02-05 07:11] LABS: Bilirubin, Total 1.2 mg/dL (0.2-1.0)
[2025-02-05 07:16] LABS: Albumin 4.1 g/dL (3.2-4.8)
[2025-02-05] MEDS ORDERED: PANTOPRAZOLE 40 MG/10 ML VIAL INJ IV SCH (10:00)
[2025-02-05] MEDS: ENOXAPARIN SOD 40 MG/0.4 ML SYRINGE SC SCH (10:00)
[2025-02-05] MEDS: predniSONE 20 MG TAB PO SCH (10:54)
[2025-02-05] MEDS: AZITHROMYCIN 500MG/ 250ML 250 ML IV SCH (10:56)
--- NOTE | 2025-02-05 14:52 | DVHPN2 ---
Assessment/Plan Assessment/Plan Subjective History of Present Illness This is a 74-year-old male with a history of CAD and hyperlipidemia presenting to the ED with a chief complaint of shortness of breath for the past 2 weeks. The patient reports progressive shortness of breath, worse with exertion, accompanied by chest tightness. He denies any sick contacts. The patient has a remote history of smoking for 2 years but currently uses marijuana daily. 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 He had a normal EKG treadmill stress test in 2022. In the ED, the patient received solumedral and breathing treatments. He is now saturating well on room air and observed walking around the hospital [place] without exertion or shortness of breath. The patient denies chest pain and is not taking any medications. He also denies any drug use other than marijuana. Objective Vital Signs - Blood Pressure: 123/79 mmHg - Heart Rate: 59 bpm - Oxygen Saturation: 98% on room air Physical Examination General: Alert and oriented x4. Respiratory: Breath sounds are clear. No wheezing observed. Cardiovascular: S1-S2 regular rate and rhythm with systolic murmur. Abdomen: Soft and non-tender. HEENT: Pupils reactive. Moist mucous membranes. Musculoskeletal: Observed walking around the hospital [place] with no exertion or shortness of breath. Extremities: No lower extremity edema. Laboratory, Imaging, and Diagnostic Test Results - Date: 2022 - EKG treadmill stress test: Normal - Chest X-ray: Remarkable - normal trops - EKG RBBB Assessment & Plan Problem List - Shortness of breath - Chronic obstructive pulmonary disease exacerbation - Acute hypoxic respiratory failure - Coronary artery disease - Hyperlipidemia - Cannabis use - R/O COVID / Flu PNA R/O ILD r/o aortic stenosis Plan - Switch to prednisone - Start azithromycin - Continue breathing treatments with ipratropium and albuterol - Order chest CT to rule out ILD due to exposure - Order echocardiogram to rule out aortic stenosis - Order flu and COVID tests to rule out viral pneumonia - Regular diet - Ambulatory, no Lovenox Diet: regular diet DVT PPX: Ambulatory GI PPX: Not indicated. Code Status: Full Code. Plan discussed with: Patient My Orders Orders - KHALIF KWOK MD Procedure Category Date Status Time Prednisone Tablet PHA 02/05/25 In Process 10:00 Azithromycin 500mg/ PHA 02/05/25 In Process 250ml (Zithromax 50 10:[address] 02/05/25 Logged 14:33 Echo 2d Mode Cardiac US 02/05/25 Logged DOP 14:35 Rapid Influenza A&B LAB 02/05/25 Verified 14:47 Covid19 Antigen Kristen LAB 02/05/25 Verified Date of Service: Feb 05, 2025 Billing Provider: KHALIF KWOK MD Common Visit Codes: [id number] INP/OBS CARE(HIGH) KHALIF KWOK MD Feb 05, 2025 14:52
[2025-02-05 16:29] LABS: COVID19 ANTIGEN SOFIA FIA NEGATIVE (NEGATIVE)
--- NOTE | 2025-02-05 16:54 | DVH ---
EXAM: CT CHEST WITHOUT CONTRAST INDICATION: r/o ILD TECHNIQUE: Noncontrast axial images of the chest have been obtained along with coronal and sagittal r eformatted images. All CT scans at this facility use dose modulation, iterative reconstruction, and/o r weight based dosing when appropriate to reduce radiation dose to as low as reasonably achievable. COMPARISON: XY CHEST PORTABLE on DOS: 02/04/25 FINDINGS: LOWER NECK: Unremarkable LYMPH NODES/MEDIASTINUM: No abnormal lymph nodes by CT size criteria CARDIOVASCULAR: Normal cardiac size. No pericardial effusion. No aneurysmal dilatation of the great v essels. Coronary artery calcifications. UPPER ABDOMEN: Unremarkable. MUSCULOSKELETAL: No acute fracture or aggressive focal osseous lesion. Multilevel degenerative change of the visualized spine. CHEST WALL: Unremarkable. LUNG PARENCHYMA/PLEURAL SPACE: No pleural effusion or pneumothorax. Atelectasis in bilateral lung bas es. IMPRESSION: 1. No CT evidence of an acute intrathoracic process. 2. No CT evidence of bronchiectasis, bronchiolectasis, subpleural reticulation, honeycombing to sugge st interstitial lung disease
[2025-02-05] MEDS: ACETAMINOPHEN 325 MG TAB PO PRN (22:11)
[2025-02-06] VITALS (9 sets, daily range): BP systolic 118–132; BP diastolic 66–85; PULSE 59–75; RESP 18–20; TEMP 97.6–98.5; O2SAT 96–100
[2025-02-06 06:29] LABS: Hematocrit 42.5 % (41.0-53.0); Hemoglobin 14.6 g/dL (13.5-17.5); Mean Corpuscular Hemoglobin 31.6 pg (28.0-32.0); Mean Corpuscular Volume 92.1 fL (80.0-100.0); Nucleated Red Blood Cells % 0.0 %
[2025-02-06 06:58] LABS: Alanine Aminotransferase 19 U/L (7-40); Alkaline Phosphatase 68 U/L (46-116); Anion Gap 10 (5-15); BUN/Creatinine Ratio 15.6 (10.0-20.0); Blood Urea Nitrogen 14 mg/dL (9-23); Calcium 9.2 mg/dL (8.7-10.4); Carbon Dioxide 25 mmol/L (20-31); Chloride 106 mmol/L (98-107); Sodium 141 mmol/L (136-145); Total Protein 6.1 g/dL (5.7-8.2)
[2025-02-06 06:59] LABS: Albumin 3.9 g/dL (3.2-4.8)
[2025-02-06 07:00] LABS: Bilirubin, Total 1.1 mg/dL (0.2-1.0); Glucose 110 mg/dL (74-106); Potassium 3.3 mmol/L (3.5-5.1)
[2025-02-06] MEDS ORDERED: ALBU108A5 IN (13:28)
[2025-02-06] MEDS ORDERED: PRED20TA2 PO (13:28)
[2025-02-06] MEDS ORDERED: TIOT17SP IN (13:28)
[2025-02-06] MEDS ORDERED: AZIT500T66 PO (13:28)
--- NOTE | 2025-02-06 13:31 | DVHDS2 ---
Discharge Summary Date of Admission Feb 04, 2025 at 18:03 Date of Discharge: Feb 06, 2025 Labs/Diagnostic Data: Laboratory Results Test 02/06/25 06:02 02/05/25 15:45 02/04/25 11:50 02/04/25 10:28 White Blood Count 12.2 10^3/uL (4.4-10.8) Red Blood Count 4.62 10^6/uL (4.5-5.90) Hemoglobin 14.6 g/dL (13.5-17.5) Hematocrit 42.5 % (41.0-53.0) Mean Corpuscular Volume 92.1 fL (80.0-100.0) Mean Corpuscular Hemoglobin 31.6 pg (28.0-32.0) Mean Corpuscular Hemoglobin Concent 34.3 g/dL (32.0-36.0) Red Cell Distribution Width 13.6 % (11.8-14.3) Platelet Count 167 10^3/uL (140-450) Mean Platelet Volume 8.1 fL (6.9-10.8) Neutrophils (%) (Auto) 68.2 % (37.0-80.0) Lymphocytes (%) (Auto) 23.2 % (10.0-50.0) Monocytes (%) (Auto) 8.3 % (0.0-12.0) Eosinophils (%) (Auto) 0.2 % (0.0-7.0) Basophils (%) (Auto) 0.1 % (0.0-2.0) Neutrophils # (Auto) 8.3 10 ^3/uL (1.6-8.6) Lymphocytes # (Auto) 2.8 10 ^3/uL (0.4-5.4) Monocytes # (Auto) 1.0 10 ^3/uL (0-1.3) Eosinophils # (Auto) 0 10 ^3/uL (0-0.8) Basophils # (Auto) 0 10 ^3/uL (0-0.2) Nucleated Red Blood Cells 0.0 % Sodium Level 141 mmol/L (136-145) Potassium Level 3.3 mmol/L (3.5-5.1) Chloride Level 106 mmol/L (98-107) Carbon Dioxide Level 25 mmol/L (20-31) Anion Gap 10 (5-15) Blood Urea Nitrogen 14 mg/dL (9-23) Creatinine 0.90 mg/dL (0.700-1.30) Glomerular Filtration Rate Calc 90 mL/min (>90) BUN/Creatinine Ratio 15.6 (10.0-20.0) Serum Glucose 110 mg/dL (74-106) Calcium Level 9.2 mg/dL (8.7-10.4) Total Bilirubin 1.1 mg/dL (0.2-1.0) Aspartate Amino Transferase (AST) 19 U/L (13-40) Alanine Aminotransferase (ALT) 19 U/L (7-40) Alkaline Phosphatase 68 U/L (46-116) Total Protein 6.1 g/dL (5.7-8.2) Albumin 3.9 g/dL (3.2-4.8) Influenza Type A Antigen Negative (Negative) Influenza Type B Antigen Negative (Negative) SARS-CoV-2 Antigen (Rapid) Negative (NEGATIVE) Urine Color Colorless (Yellow) Urine Clarity Clear (Clear) Urine pH 5.0 (5.0-9.0) Urine Specific [place] 1.005 (1.001-1.035) Urine Protein Negative (Negative) Urine Ketones Negative (Negative) Urine Blood Negative /uL (Negative) Urine Nitrite Negative (Negative) Urine Bilirubin Negative (Negative) Urine Urobilinogen Normal mg/dL (Negative) Urine Leukocyte Esterase Negative /uL (Negative) Urine RBC <1 /hpf (0 - 3) Urine Microscopic WBC < 1 /HPF (0-3) Urine Squamous Epithelial Cells None seen /hpf (<5) Urine Bacteria None seen /hpf (None Seen) Urine Hyaline Casts Few /lpf (0 - 2) Urine Glucose Normal mg/dL (Normal) Troponin I High Sensitivity 3 ng/L (</=54) Test 02/04/25 09:32 B-Type Natriuretic Peptide 31.67 pg/mL (0-100) Other Laboratory Tests 02/06/25 06:02 Brief Hx & Hospital Course: A 74-year-old male with history of coronary artery disease and hyperlipidemia presented with progressive shortness of breath for 2 weeks, worse with exertion. Patient has remote smoking history but uses marijuana daily and had drywall exposure. In the ED, he received solomedral and breathing treatments, now saturating 98% on room air with clear breath sounds and systolic murmur. Diagnosed with COPD exacerbation. Plan includes switching to prednisone, starting azithromycin, continuing ipratropium/albuterol treatments, chest CT to evaluate for interstitial lung disease, echocardiogram for possible aortic stenosis, and viral testing. which was negative. dc with prednisone and azithromycin, spiriva and albuterol. f/u with PCP and pulm for PFT and cardio for stress test Condition at Discharge: Good Final Diagnosis/Problems List - Shortness of breath - Chronic obstructive pulmonary disease exacerbation - Acute hypoxic respiratory failure - Coronary artery disease - Hyperlipidemia - Cannabis use ruled out COVID / Flu PNA ruled out ILD ruled out aortic stenosis Discharge Disposition: Home Discharge Instruct/Medications Diet: Cardiac 2g Na,low cholest Activity: No Restrictions, As Tolerated Follow Up/Referral: dc clinic PCP pulmonary cardiology for stress test Medications: spiriva 1 puff daily albuterol as needed prednisone 3 days to complete course azithromycin 3 days to complete course Scheduled Azithromycin (Azithromycin), 1 TAB PO DAILY Prednisone (Prednisone), 40 MG PO DAILY Tiotropium [place] Monohydrate (Spiriva Respimat), 2.5 MCG IN DAILY Scheduled PRN Albuterol Sulfate (Albuterol Sulfate Hfa), 108 MCG IN Q15MP PRN Discharge Statement: "Patient was advised to return to the ER or call 911 if any headaches, dizziness, shortness of breath, chest pain, abdominal pain, bleeding, fevers, or worsening of medical condition. Patient was counseled about treatment plan, medications, possible side effects, patientverbalized understanding. All questions were answered to the best of my ability. This discharge took greater then 30 minutes in planning, reviewing documentation, counseling the patient, and discussing with other team members." ASSESSMENT ASSESSMENT Assessment COPD exacerbation Date of Service: Feb 06, 2025 Billing Provider: KHALIF KWOK MD Common Visit Codes: [id number] DISCH DAY >30min KHALIF KWOK MD Feb 06, 2025 13:30
--- NOTE | 2025-02-06 15:55 | DVHSR ---
APPROVED REPORT EXAM: LIMITED Two-dimensional and M-mode echocardiogram with Doppler and color Doppler. Blood Pressure: 118/81 mmHg INDICATION RMWA RISK FACTORS Height: 6' 1", Weight: 146 DIMENSIONS LVDd4.0 (3.8-5.7cm)LA (2D)4.2 (1.9-4.0cm)Aortic Root3.0 (2.0-3.7cm) LVDs2.8 (2.5-4.0cm)LA (MM) (1.9-4.0cm)Aortic Cusp Exc1.6 (1.5-2.0cm) EF (%) 57.0 (55-70%)Rt. Atrium4.1 (1.9-4.0cm)Asc. Aorta cm IVSd0.8 (0.7-1.1cm)RV (D) (1.8-2.4cm) PWd0.9 (0.7-1.1cm) Mitral Valve MitralMitral Stenosis E wave0.50m/sMV Mean GR.mmHg A wave0.90m/sMV Peak GR.mmHg E/A ratio0.62D MVAcm2 Aortic Valve Aortic ValveAortic Stenosis LVOT Diameter2.3 (1.8-2.4cm)Doppler AVAcm2 Pulmonic Valve V20.99m/s Other Information Quality : Technically LimitedRhythm : Technically limited study due to body habitus, patient very this with no rib spaces. Conclusion Technically good study. Sinus rhythm. Difficult acoustic windows. There is concentric LVH. Mild aortic root enlargement. Left atrial enlargement. Hypertrophy of the right ventricular free wall. The mitral valve is normal. The aortic valve is trileaflet. There was no significant abnormality wi th the aortic tricuspid and pulmonic valves. Left ventricular systolic performance is preserved at 55% with normal RV function. Doppler reveals mild tricuspid regurgitation. No pericardial effusion masses or vegetations.
--- NOTE | 2025-02-06 16:27 | DVHPN2 ---
Subjective This is a follow up on 74-year-old male with a known history of COPD currently admitted for COPD exacerbation. Changes from previous H/P or p: No Changes Objective Vitals Vital Signs Date Time Temp Pulse Resp B/P (MAP) Pulse Ox O2 Delivery O2 Flow Rate FiO2 02/06/25 15:51 98.5 75 18 98 02/06/25 12:35 132/66 (88) 02/06/25 11:17 Room Air 0.0 02/06/25 11:17 21 Intake/Output Intake and Output 02/06/25 07:00 Intake Total 3573 ml Balance 3573 ml Intake Oral 3323 ml IV Total 250 ml # Voids 7 # Bowel Movements 2 Medications Current Medications Medications Dose Ordered Sig/Miriam Route Start Time Stop Time Status Last Admin Dose Admin Sodium Chloride 10 ml Q8HR IV 02/04/25 22:00 02/06/25 13:57 10 ML Acetaminophen 650 mg Q6HP PRN PO 02/04/25 18:15 02/05/25 22:11 650 MG Albuterol 2.5 mg Q6HWA NEB 02/05/25 06:00 02/06/25 11:17 2.5 MG Ipratropium [place] 0.5 mg Q6HWA NEB 02/05/25 06:00 02/06/25 11:17 0.5 MG Prednisone 40 mg DAILY PO 02/05/25 10:00 02/06/25 09:31 40 MG Azithromycin 250 ml @ 125 mls/hr DAILY IV 02/05/25 10:00 02/06/25 09:31 125 MLS/HR Laboratory Results Laboratory Tests 02/06/25 06:02 Chemistry Test 02/06/25 06:02 Albumin 3.9 g/dL (3.2-4.8) Calcium Level 9.2 mg/dL (8.7-10.4) Total Protein 6.1 g/dL (5.7-8.2) LFT Test 02/06/25 06:02 Alanine Aminotransferase (ALT) 19 U/L (7-40) Alkaline Phosphatase 68 U/L (46-116) Aspartate Amino Transferase (AST) 19 U/L (13-40) Total Bilirubin 1.1 mg/dL (0.2-1.0) H Urinalysis Test 02/04/25 11:50 Urine Color Colorless (Yellow) Urine Clarity Clear (Clear) Urine pH 5.0 (5.0-9.0) Urine Specific [place] 1.005 (1.001-1.035) Urine Protein Negative (Negative) Urine Ketones Negative (Negative) Urine Blood Negative /uL (Negative) Urine Nitrite Negative (Negative) Urine Bilirubin Negative (Negative) Urine Urobilinogen Normal mg/dL (Negative) Urine Leukocyte Esterase Negative /uL (Negative) Urine RBC <1 /hpf (0 - 3) Urine Microscopic WBC < 1 /HPF (0-3) Urine Squamous Epithelial Cells None seen /hpf (<5) Urine Bacteria None seen /hpf (None Seen) Urine Hyaline Casts Few /lpf (0 - 2) Urine Glucose Normal mg/dL (Normal) Assessment/Plan Assessment/Plan 74-year-old male with a known history of CAD, dyslipidemia, COPD initially presented to the hospital with the shortness a breath found to have 1. Acute COPD exacerbation 2. Acute hypoxic respiratory failure secondary to acute COPD exacerbation currently on room air 3. CAD 4. Dyslipidemia -med nebs Solu-Medrol, O2 supplementation, Plan discussed with: Other (Bedside RN.) Date of Service: Feb 05, 2025 Billing Provider: NADINE CHO MD Common Visit Codes: NOT BILLABLE NADINE CHO MD Feb 06, 2025 16:27
== END 2025-02-06 17:00 | disposition home or self-care (01) | DRG 189 ==
LOC: ER 08:59 → OVERFLOW 18:03 → CENTRAL 23:13
PROVIDERS: ADMIT Internal Medicine; ATTEND Internal Medicine
DX: J96.01 Acute respiratory failure with hypoxia (principal); J44.1 Chronic obstructive pulmonary disease with (acute) exacerbation; I25.10 Atherosclerotic heart disease of native coronary artery without angina pectoris; E78.5 Hyperlipidemia, unspecified; F12.90 Cannabis use, unspecified, uncomplicated; F17.200 Nicotine dependence, unspecified, uncomplicated; Z79.899 Other long term (current) drug therapy
CPT/HCPCS: 36415; 71045; 71250; 80048; 80053; 81001; 83880; 84484; 85025; 87426; 87804; 93005; 93306; 94640; 99291; G0378